=== PATIENT | female | born 1980 | race Caucasian/White ===

== ENCOUNTER → 2017-07-16 | Outpatient (CLI) | payer OTHER ==
--- NOTE | 2017-07-17 08:53 | WWHP ---
CHIEF COMPLAINT: The patient is here for her routine gynecologic exam and mammogram. HPI: This is a 36-year-old G4, P3-0-1-3 with an LMP of 03/02/16. She is status post tubal ligation. She states this month she has noticed a slight fluttering type of sensation in the area of the mons pubis. She states she notices this several times a day. She denies pain and this is not very bothersome, but she states this is different. She states it feels like a cell phone is vibrating in this area. She cannot associate this with any type of activity. She did not notice this before this month. She is otherwise without complaints. Menses are regular every month. PAST MEDICAL HISTORY: Unremarkable. MEDICATIONS: None. ALLERGIES: No known drug allergies. 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 SOCIAL HISTORY: She denies tobacco and drug use and has zero to two alcoholic drinks per year. She has been since 07/17. Her new has four children of his own. 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 REVIEW OF SYSTEMS: She states she lost about 25 pounds a few months ago, but has gained about 12 pounds back. She did this with a prescription of Adipex which she briefly used and is no longer taking this. She denies respiratory, cardiac, or GI problems. PHYSICAL EXAM: Blood pressure 110/73, height 5 feet 4 inches, weight 212 pounds. Temperature 98.7, pulse 80. This is a well developed, heavy set white female who is alert and oriented x3 in no acute distress. HEENT is within normal limits. Neck is supple without mass or thyromegaly. Chest and lungs clear to auscultation. Heart: Regular rate and rhythm. Breasts are without mass or discharge. Axillary exam is negative for adenopathy. Back negative for CVA tenderness. Abdomen is mildly obese, soft, nontender without palpable masses. Pelvic exam: Normal external genitalia. Cervix and vagina appear normal. There is no evidence of prolapse. The uterus is mid-position, nongravid size and nontender. There are no palpable adnexal masses or tenderness. Rectovaginal exam is negative for mass or tenderness. Extremities are nontender. IMPRESSION: 1. A 36-year-old female with normal gynecologic exam who is status post tubal ligation. 2. Occasional fluttering type sensation in the low abdomen without any significant physical findings at this time. 3. Family history of breast cancer in her mother. PLAN: 1. PAP smear was deferred since she had a negative one last year. 2. Self breast examination was discussed. 3. Mammogram will be done today and yearly because of her family history. 4. We had long discussion regarding the recent occasional fluttering sensation. Since there are no significant physical findings and this is not very bothersome to her I decided to follow this conservatively. She will see if this is associated with any type of activity and to see if it persists. She was instructed to call if she is having increasing symptoms or problems. 5. We have discussed her weight. I have recommended that she try to lose weight without medications. We discussed the importance of good nutrition and exercise. I have also asked her to consider attending [employer]. 6. She will return in one year. PRADEEP
--- NOTE | 2017-07-18 09:00 | MM ---
Reason for exam: screening (asymptomatic). Last mammogram was performed 1 year and 11 months ago. History: Family history of breast cancer in mother at age 42. Physical Findings: A clinical breast exam by your physician is recommended on an annual basis and results should be correlated with mammographic findings. MG Screening Mammo w CAD Bilateral CC and MLO view(s) were taken. Prior study comparison: August 19, 2015, right breast MG work up mamm w CAD RT. August 12, 2015, bilateral MG screening mammo w CAD. March 31, 2012, CAD bilateral diagnostic mammogram. March 01, 2011, bilateral digital screening mammo w/CAD. The breast tissue is heterogeneously dense. This may lower the sensitivity of mammography. No significant changes when compared with prior studies. ASSESSMENT: Negative, BI-RAD 1 RECOMMENDATION: Routine screening mammogram of both breasts at age 38.
== END | disposition home or self-care (01) ==
LOC: WWCWWP 10:50
PROVIDERS: ATTEND Obstetrics & Gynecology
DX: Z12.31 Encounter for screening mammogram for malignant neoplasm of breast (principal)

== ENCOUNTER → 2018-10-14 | Outpatient (CLI) | payer OTHER ==
[2018-10-14 10:51] VITALS: BP 117/67; PULSE 78; TEMP 97.4; BMI 35.9
--- NOTE | 2018-10-14 11:32 | P.HPOB ---
History of Present Illness H&P Date: 10/14/18 Chief Complaint: The patient is here for her routine gynecologic exam and mammogram. This is a 38-year-old with an LMP of 09/14/2018. The patient states she has noticed occasional slight vaginal odor, but denies any vaginal odor currently. She was previously treated for BV after her last Pap smear done in 2016. She is otherwise without complaints. Menses are regularly 23 days. She is status post tubal ligation. Review of Systems The patient has lost 3 pounds over the last year. She denies respiratory, cardiac, or G.I. problems. 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 She has no other history of STDs. History of Any Multi-Drug Resistant Organisms: None Reported Additional Past Surgical History / Comment(s): Multiple Surgeries for cleft lip and palate between ages 1 and 12. Past Psychological History: No Psychological Hx Reported Smoking Status: Never smoker Past Alcohol Use History: Rare Additional Past Alcohol Use History / Comment(s): 0-2 per year Past Drug Use History: None Reported Additional History: She has been since 2015. Her has 4 children of his own. 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 - Past Family History Mother Family Medical History: Cancer (Breast cancer at age 41, .) Father Family Medical History: CVA/TIA, Hypertension Additional Family Medical History / Comment(s): She was once told her paternal grandfather had breast cancer. She will try to confirm this. Medications and Allergies Home Medications Medication Instructions Recorded Confirmed Type No Known Home Medications 10/14/18 10/14/18 History Allergies Allergy/AdvReac Type Severity Reaction Status Date / Time No Known Allergies Allergy Unverified 10/14/18 10:45 Exam Vital Signs Temp Pulse BP 10/14/18 10:47 97.4 F L 78 117/67 Intake and Output 10/13/18 10/14/18 10/14/18 22:59 06:59 14:59 Other: Weight 94.801 kg This is a well-developed well-nourished heavyset white female who is alert and oriented times 3 in no acute distress. HEENT: Within normal limits. NECK: Supple without mass or thyromegaly. CHEST AND LUNGS: Clear to auscultation. HEART: Regular rate and rhythm. BREASTS: Are without mass or discharge. AXILLARY EXAM: Negative for adenopathy. BACK: Negative for CVA tenderness. ABDOMEN: Soft, nontender, without palpable masses. PELVIC EXAM: Normal external genitalia. Cervix and vagina appear normal. There is no unusual discharge. There is no odor. There is no evidence of prolapse. The uterus is midposition, nongravid size and nontender. There are no palpable adnexal masses or tenderness. RECTAL EXAM: negative for mass or tenderness and is negative for occult blood. EXTREMITIES: Nontender. IMPRESSION: 1. 38-year-old female with normal gynecologic exam who is status post tubal ligation. 2. Family history of breast cancer in her mother. Also possible history of breast cancer in a paternal grandfather. PLAN: 1. Pap smear was performed. 2. Self breast awareness was discussed with the patient. 3. Screening mammogram will be done today. I have recommended she have this done yearly. We also had a long discussion regarding BRCA testing. She is declining this at this time. She was instructed to let me know if she changes her mind about this. 4. Osteoporosis prevention was discussed. 5. She will return in one year.
--- NOTE | 2018-10-16 09:45 | MM ---
Reason for exam: screening (asymptomatic). Last mammogram was performed 1 year and 3 months ago. History: Family history of breast cancer in mother at age 42. Now . MG 3D Screening Mammo W/Cad Bilateral CC and MLO view(s) were taken. Prior study comparison: July 16, 2017, bilateral MG screening mammo w CAD. August 19, 2015, right breast MG work up mamm w CAD RT. The breast tissue is heterogeneously dense. This may lower the sensitivity of mammography. There is a new focal asymmetry seen on the right CC view medially. Special views of the right breast are recommended. ASSESSMENT: Incomplete: need additional imaging evaluation, BI-RAD 0 RECOMMENDATION: Special view mammogram of the right breast.
== END | disposition home or self-care (01) ==
LOC: WWCWWP 10:39
PROVIDERS: ATTEND Obstetrics & Gynecology
DX: Z12.31 Encounter for screening mammogram for malignant neoplasm of breast (principal)
CPT/HCPCS: 77063; 77067

== ENCOUNTER → 2018-10-22 | Outpatient (CLI) | payer OTHER ==
--- NOTE | 2018-10-22 11:35 | MM ---
Reason for exam: additional evaluation requested from abnormal screening. Last mammogram was performed less than 1 month ago. History: Family history of breast cancer in mother at age 42. Physical Findings: Nurse did not find any significant physical abnormalities on exam. MG 3D Work Up W/Cad RT CC and MLO view(s) were taken of the right breast. Prior study comparison: October 14, 2018, bilateral MG 3d screening mammo w/cad. July 16, 2017, bilateral MG screening mammo w CAD. The breast tissue is heterogeneously dense. This may lower the sensitivity of mammography. 5 o'clock focal asymmetry becomes much less defined on additional view but is noted to be new from older priors. This may be focal fibroglandular tissue now apparent as a consequence of her reported weight loss. These results were verbally communicated with the patient and result sheet given to the patient on 10/22/18. ASSESSMENT: Probably benign, BI-RAD 3 RECOMMENDATION: Follow-up diagnostic mammogram of the right breast in 6 months.
== END | disposition home or self-care (01) ==
LOC: RADMAMWWP 10:16
PROVIDERS: ATTEND Obstetrics & Gynecology
DX: R92.8 Other abnormal and inconclusive findings on diagnostic imaging of breast (principal)
CPT/HCPCS: 77061; 77065

== ENCOUNTER → 2019-10-20 | Outpatient (CLI) | payer OTHER ==
[2019-10-20 12:58] VITALS: BP 109/75; PULSE 75; RESP 18; TEMP 98.1; BMI 38.7
--- NOTE | 2019-10-20 13:27 | P.HPOB ---
History of Present Illness H&P Date: 10/20/19 Chief Complaint: The patient is here for her routine gynecologic exam and ma mmogram. This is a 39-year-old 013 with an LMP of 10/15/2019. The patient is without gynecologic complaints. Menses are regular every month. The patient was advised to have a repeat right breast ultrasound about 6 months ago, but she did not have this done. Review of Systems The patient has gained 17 pounds over the last year. She denies respiratory, cardiac, or G.I. problems. 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 She has no other history of STDs. History of Any Multi-Drug Resistant Organisms: None Reported Additional Past Surgical History / Comment(s): Multiple Surgeries for cleft lip and palate between ages 1 and 12. Past Psychological History: No Psychological Hx Reported Smoking Status: Never smoker Past Alcohol Use History: Rare (4 per year) Past Drug Use History: None Reported Additional History: She has been since 2015. Her has 4 children of his own. 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 - Past Family History Mother Family Medical History: Cancer Additional Family Medical History / Comment(s): Breast cancer at age 41. Father Family Medical History: CVA/TIA, Hypertension Additional Family Medical History / Comment(s): She was once told her paternal grandfather had breast cancer. She will try to confirm this. Medications and Allergies Home Medications Medication Instructions Recorded Confirmed Type Multivitamin [Multivitamins Adult 1 each PO DAILY 10/20/19 10/20/19 History Gummies] Allergies Allergy/AdvReac Type Severity Reaction Status Date / Time No Known Allergies Allergy Unverified 10/20/19 12:59 Exam Vital Signs Temp Pulse Resp BP Pulse Ox 10/20/19 12:53 98.1 F 75 18 109/75 97 Intake and Output 10/19/19 10/20/19 10/20/19 22:59 06:59 14:59 Other: Weight 102.512 kg Height 5 feet 4 inches, weight 226 pounds, BMI 38.8. This is a well-developed well-nourished heavyset white female who is alert and oriented times 3 in no acute distress. HEENT: Within normal limits. NECK: Supple without mass or thyromegaly. CHEST AND LUNGS: Clear to auscultation. HEART: Regular rate and rhythm. BREASTS: Are without mass or discharge. AXILLARY EXAM: Negative for adenopathy. BACK: Negative for CVA tenderness. ABDOMEN: Soft, nontender, without palpable masses. PELVIC EXAM: Normal external genitalia. Cervix and vagina appear normal. There is a small amount of menstrual blood in the vagina consistent with her menstrual period. There is no unusual discharge. There is no evidence of prolapse. The uterus is midposition, nongravid size and nontender. There are no palpable adnexal masses or tenderness. RECTAL EXAM: negative for mass or tenderness and is negative for occult blood. EXTREMITIES: Nontender. IMPRESSION: 1. 39-year-old female with normal gynecologic exam. 2. Previous abnormal right mammogram 1 year ago and she did not do the follow- up 6 month mammogram. PLAN: 1. Pap smear was deferred since she had a normal one on 10/14/2018. 2. Self breast awareness was discussed with the patient. 3. Diagnostic bilateral mammogram will be done today. 4. Osteoporosis prevention was discussed. I have stressed the importance of adequate calcium, vitamin D and regular exercise. Recommended amounts of calcium and vitamin D were also discussed. 5. She was advised to return in one year for her annual well woman exam.
--- NOTE | 2019-10-20 14:29 | MM ---
Reason for exam: additional evaluation requested from prior study. Last mammogram was performed 1 year ago. History: Family history of breast cancer in mother at age 42. Physical Findings: Dr. Arellano did breast exam. MG 3D Diag Mammo W/Cad SISSY Bilateral CC and MLO view(s) were taken. Prior study comparison: October 22, 2018, right breast MG 3d work up w/cad RT. October 14, 2018, bilateral MG 3d screening mammo w/cad. The breast tissue is heterogeneously dense. This may lower the sensitivity of mammography. No suspicious abnormality. No significant new findings when compared with previous films. These results were verbally communicated with the patient and result sheet given to the patient on 10/20/19. ASSESSMENT: Negative, BI-RAD 1 RECOMMENDATION: Routine screening mammogram of both breasts in 1 year.
== END ==
LOC: WWCWWP 12:39
PROVIDERS: ATTEND Obstetrics & Gynecology
DX: R92.8 Other abnormal and inconclusive findings on diagnostic imaging of breast (principal)
CPT/HCPCS: 77062; 77066

== ENCOUNTER → 2021-02-14 | Outpatient (CLI) | payer OTHER ==
[2021-02-14 09:28] VITALS: BP 120/76; PULSE 76; RESP 18; TEMP 98.3
--- NOTE | 2021-02-14 09:55 | P.HPOB ---
History of Present Illness H&P Date: 02/14/21 Chief Complaint: The patient is here for her routine gynecologic exam and ma mmogram. This is a 40-year-old 013 with an LMP of 01/30/2021. She is status post tubal ligation. The patient is without gynecologic complaints. Menses are regular every month. Review of Systems The patient has gained 8 pounds over the last year. She denies respiratory, cardiac, or G.I. problems. 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 She has no other history of STDs. History of Any Multi-Drug Resistant Organisms: None Reported Additional Past Surgical History / Comment(s): Multiple Surgeries for cleft lip and palate between ages 1 and 12. Past Psychological History: No Psychological Hx Reported Smoking Status: Never smoker Past Alcohol Use History: Rare Additional Past Alcohol Use History / Comment(s): 0-2 per year Past Drug Use History: None Reported Additional History: She has been since 2015. 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 - Past Family History Mother Family Medical History: Cancer Additional Family Medical History / Comment(s): Breast cancer at age 41. Father Family Medical History: CVA/TIA, Hypertension Additional Family Medical History / Comment(s): She was once told her paternal grandfather had breast cancer. She will try to confirm this. Son(s) Family Medical History: Diabetes Mellitus Additional Family Medical History / Comment(s): Type 1 diabetes Medications and Allergies Home Medications Medication Instructions Recorded Confirmed Type No Known Home Medications 02/14/21 02/14/21 History Allergies Allergy/AdvReac Type Severity Reaction Status Date / Time No Known Allergies Allergy Unverified 02/14/21 09:22 Exam Vital Signs Temp Pulse Resp BP Pulse Ox 02/14/21 09:22 98.3 F 76 18 120/76 96 Intake and Output 02/13/21 02/14/21 02/14/21 22:59 06:59 14:59 Other: Weight 106.141 kg Height 5 feet 4-1/2 inches, weight 234 pounds, BMI 39.5. This is a well-developed well-nourished heavyset white female who is alert and oriented times 3 in no acute distress. HEENT: Within normal limits. NECK: Supple without mass or thyromegaly. CHEST AND LUNGS: Clear to auscultation. HEART: Regular rate and rhythm. BREASTS: Are without mass or discharge. AXILLARY EXAM: Negative for adenopathy. BACK: Negative for CVA tenderness. ABDOMEN: Soft, nontender, without palpable masses. PELVIC EXAM: Normal external genitalia. Cervix and vagina appear normal. There is no unusual discharge. There is no evidence of prolapse. The uterus is midposition, nongravid size and nontender. There are no palpable adnexal masses or tenderness. RECTAL EXAM: negative for mass or tenderness and is negative for occult blood. EXTREMITIES: Nontender. IMPRESSION: 1. 40-year-old female with normal gynecologic exam. 2. Family history of breast cancer in her mother. PLAN: 1. Pap smear cotest was performed. 2. Self breast awareness was discussed with the patient. 3. Screening mammogram will be done today. 4. Osteoporosis prevention was discussed. I have stressed the importance of adequate calcium, vitamin D and regular exercise. Recommended amounts of calcium and vitamin D were also discussed. 5. Weight control was discussed with the patient. I have stressed the importance of regular meals, good nutrition, adequate fiber, and adequate exercise. 6. She was advised to return in one year for her annual well woman exam.
--- NOTE | 2021-02-16 08:30 | MM ---
Reason for exam: screening (asymptomatic). Last mammogram was performed 1 year and 4 months ago. History: Family history of breast cancer in mother at age 42. Took hormonal contraceptives for 1 month. Physical Findings: A clinical breast exam by your physician is recommended on an annual basis and results should be correlated with mammographic findings. MG 3D Screening Mammo W/Cad Bilateral CC and MLO view(s) were taken. Prior study comparison: October 20, 2019, bilateral MG 3d diag mammo w/cad SISSY. October 22, 2018, right breast MG 3d work up w/cad RT. There are scattered fibroglandular densities. No significant changes when compared with prior studies. ASSESSMENT: Benign, BI-RAD 2 RECOMMENDATION: Routine screening mammogram of both breasts in 1 year.
== END | disposition home or self-care (01) ==
LOC: WWCWWP 09:14
PROVIDERS: ATTEND Obstetrics & Gynecology
DX: Z12.31 Encounter for screening mammogram for malignant neoplasm of breast (principal)
CPT/HCPCS: 77063; 77067

== ENCOUNTER → 2021-06-27 | Outpatient (CLI) | payer OTHER ==
[2021-06-27 13:02] VITALS: BP 105/66; PULSE 74; RESP 18; TEMP 98.3
--- NOTE | 2021-06-27 13:33 | P.PN ---
Progress Note - Text Progress Note Date: 06/27/21 Chief Complaint: Left breast boil noticed since 06/10/2021 HPI: This is a 40-year-old 013 with an LMP of 06/08/2021. The patient noticed a boil type lesion on the lower part of the left breast around 2 days after her LMP. She states it seemed to feel large and swollen with a olguin. She did have some blood drained from it as well as a small amount of whitish material. Since then it has gotten quite a bit smaller and is not painful. ROS: She denies fever or nipple discharge. PE: Blood pressure:105/66 Height: 5 feet 4-1/2 inches, Weight: 232 pounds, Temperature: 98.3, Pulse: 74. Pulse oximeter 97%. This is a well developed, well nourished, white female who is alert and cherie entedx3, in no acute distress. Left breast: There is a visible darkened area measuring 1.5 x 2.0 cm at the 5 o'clock position. This is slightly firm and nontender. There is no erythema. There is no drainage. This is consistent with a resolving boil/furuncle. There are no other abnormalities of the left breast with no masses within the breast. The nipple appears normal with no discharge. There is no unusual puckering or dimpling. 02/14/2021 mammogram was benign. Impression: 1. 40-year-old perimenopausal female with a recent left breast furuncle (boil) which is now resolving. 2. Family history of breast cancer in her mother. Plan: 1. I have given the patient reassurance that I do not believe this is any form of breast cancer. This is resolving and should continue to resolve. 2. The patient was instructed to use warm compresses to the area on a regular basis. This will help anything to drain if he is developing within the furuncle. The patient will also use a small amount of Neosporin as directed until it has resolved. 3. She was instructed to call if this is worsening or enlarging, or if signs of infection such as redness. 4. She will return in January 2022 for her annual examination and mammogram. Time spent with the patient: 15 minutes
== END ==
LOC: WWCWWP 12:33
PROVIDERS: ATTEND Obstetrics & Gynecology
DX: N61.1 Abscess of the breast and nipple (principal); Z80.3 Family history of malignant neoplasm of breast

== ENCOUNTER → 2022-02-06 | Outpatient (CLI) | payer OTHER ==
[2022-02-06 10:42] VITALS: BP 137/82; PULSE 71; RESP 17; TEMP 98
--- NOTE | 2022-02-06 11:42 | P.HPOB ---
History of Present Illness H&P Date: 02/06/22 Chief Complaint: The patient is here for her routine gynecologic exam and ma mmogram. This is a 41-year-old 013 with an LMP of 02/01/2022. The patient is status post tubal ligation. She is without gynecologic complaints. She states menstrual periods are regular every month. Review of Systems The patient has gained 2 pounds over the last year. She denies respiratory, cardiac, or G.I. problems. 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 She has no other history of STDs. History of Any Multi-Drug Resistant Organisms: None Reported Additional Past Surgical History / Comment(s): Multiple Surgeries for cleft lip and palate between ages 1 and 12. Past Psychological History: No Psychological Hx Reported Smoking Status: Never smoker Past Alcohol Use History: Rare (0-2 per year) Additional Past Alcohol Use History / Comment(s): 0-2 per year Past Drug Use History: None Reported Additional History: She has been since 2015. 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 - Past Family History Mother Family Medical History: Cancer Additional Family Medical History / Comment(s): Breast cancer at age 41. Father Family Medical History: CVA/TIA, Hypertension Additional Family Medical History / Comment(s): She was once told her paternal grandfather had breast cancer. She will try to confirm this. Son(s) Family Medical History: Diabetes Mellitus Additional Family Medical History / Comment(s): Type 1 diabetes Medications and Allergies Home Medications Medication Instructions Recorded Confirmed Type No Known Home Medications 02/14/21 02/06/22 History Allergies Allergy/AdvReac Type Severity Reaction Status Date / Time No Known Allergies Allergy Unverified 02/06/22 10:39 Exam Vital Signs Temp Pulse Resp BP Pulse Ox 02/06/22 10:39 98 F 71 17 137/82 97 Intake and Output 02/05/22 02/06/22 02/06/22 22:59 06:59 14:59 Other: Weight 107.048 kg Height 5 feet 4 inches, weight 236 pounds, BMI 40.5. This is a well-developed well-nourished white female who is alert and oriented times 3 in no acute distress. HEENT: Within normal limits. NECK: Supple without mass or thyromegaly. CHEST AND LUNGS: Clear to auscultation. HEART: Regular rate and rhythm. BREASTS: Are without mass or discharge. AXILLARY EXAM: Negative for adenopathy. BACK: Negative for CVA tenderness. ABDOMEN: Soft, nontender, without palpable masses. There is a skin boil over the left upper quadrant measuring approximately 2.5 cm. This appears benign. PELVIC EXAM: Normal external genitalia. Cervix and vagina appear normal. There is no unusual discharge. There is no evidence of prolapse. The uterus is midposition, nongravid size and nontender. There are no palpable adnexal masses or tenderness. RECTAL EXAM: negative for mass or tenderness and is negative for occult blood. EXTREMITIES: Nontender. IMPRESSION: 1. 41-year-old female who is status post tubal ligation, with normal gynecologic exam. 2. Family history of breast cancer in her mother. PLAN: 1. Pap smear was deferred since she had a negative Pap smear, test on 02/14/2021. 2. Self breast awareness was discussed with the patient. We have also discussed symptoms associated with inflammatory breast cancer. 3. Screening mammogram will be done today. 4. Osteoporosis prevention was discussed. I have stressed the importance of adequate calcium, vitamin D and regular exercise. Recommended amounts of calcium and vitamin D were also discussed. 5. The patient states she has had fairly frequent boils on her skin in various areas including behind her year, on her abdomen, on her breasts, and in the groin areas. They typically go away with time. I have recommended that she discuss this with a electric meter technician if they are becoming a problem. We have also discussed the use of warm compresses and Neosporin when the development. I have recommended that she avoid popping them or trying to open them. 6. She was advised to return in one year for her annual well woman exam.
--- NOTE | 2022-02-07 10:55 | MM ---
Reason for exam: screening (asymptomatic). Last mammogram was performed 1 year ago. History: Family history of breast cancer in mother at age 42. Took hormonal contraceptives for 1 month. Physical Findings: A clinical breast exam by your physician is recommended on an annual basis and results should be correlated with mammographic findings. MG 3D Screening Mammo W/Cad Bilateral CC and MLO view(s) were taken. Prior study comparison: February 14, 2021, bilateral MG 3d screening mammo w/cad. October 20, 2019, bilateral MG 3d diag mammo w/cad [facility]. The breast tissue is heterogeneously dense. This may lower the sensitivity of mammography. There is no discrete abnormality. No significant changes when compared with prior studies. ASSESSMENT: Negative, BI-RAD 1 RECOMMENDATION: Routine screening mammogram of both breasts in 1 year.
== END ==
LOC: WWCWWP 10:23
PROVIDERS: ATTEND Obstetrics & Gynecology
DX: Z12.31 Encounter for screening mammogram for malignant neoplasm of breast (principal); Z01.419 Encounter for gynecological examination (general) (routine) without abnormal findings; Z98.51 Tubal ligation status; Z80.3 Family history of malignant neoplasm of breast
CPT/HCPCS: 77063; 77067

== ENCOUNTER → 2023-02-13 | Outpatient (CLI) | payer OTHER ==
[2023-02-13 08:15] VITALS: BP 114/78; PULSE 72; RESP 17; TEMP 98.2
--- NOTE | 2023-02-13 08:50 | P.HPOB ---
History of Present Illness H&P Date: 02/13/23 Chief Complaint: The patient is here for her routine gynecologic exam and ma mmogram. This is a 42-year-old 013 with an LMP of 01/21/2023. The patient is status post tubal ligation. She is without gynecologic complaints. Menstrual periods are regular about every 3 1/2 weeks and typically last 5 days. Review of Systems The patient has lost 3 pounds over the last year. She denies respiratory, cardiac, or G.I. problems. 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 She has no other history of STDs. History of Any Multi-Drug Resistant Organisms: None Reported Additional Past Surgical History / Comment(s): Multiple Surgeries for cleft lip and palate between ages 1 and 12. Past Psychological History: No Psychological Hx Reported Smoking Status: Never smoker Past Alcohol Use History: Rare (0-2 per year) Additional Past Alcohol Use History / Comment(s): 0-2 per year Past Drug Use History: None Reported Additional History: She has been since 2015. 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 - Past Family History Mother Family Medical History: Cancer Additional Family Medical History / Comment(s): Breast cancer at age 41. Father Family Medical History: CVA/TIA, Hypertension Additional Family Medical History / Comment(s): She was once told her paternal grandfather had breast cancer. She will try to confirm this. Son(s) Family Medical History: Diabetes Mellitus Additional Family Medical History / Comment(s): Type 1 diabetes Medications and Allergies Home Medications Medication Instructions Recorded Confirmed Type No Known Home Medications 02/14/21 02/13/23 History Allergies Allergy/AdvReac Type Severity Reaction Status Date / Time No Known Allergies Allergy Unverified 02/13/23 08:09 Exam Vital Signs Temp Pulse Resp BP Pulse Ox 02/13/23 08:09 98.2 F 72 17 114/78 100 Intake and Output 02/12/23 02/13/23 02/13/23 22:59 06:59 14:59 Other: Weight 105.687 kg Height 5 feet 5 inches, weight 233 pounds, BMI 38.8. This is a well-developed well-nourished white female who is alert and oriented times 3 in no acute distress. HEENT: Within normal limits. NECK: Supple without mass or thyromegaly. CHEST AND LUNGS: Clear to auscultation. HEART: Regular rate and rhythm. BREASTS: Are without mass or discharge. AXILLARY EXAM: Negative for adenopathy. BACK: Negative for CVA tenderness. ABDOMEN: Soft, nontender, without palpable masses. PELVIC EXAM: Normal external genitalia. Cervix and vagina appear normal. There is no unusual discharge. There is no evidence of prolapse. The uterus is midposition, nongravid size and nontender. There are no palpable adnexal masses or tenderness. RECTAL EXAM: negative for mass or tenderness and is negative for occult blood. EXTREMITIES: Nontender. IMPRESSION: 1. 42-year-old female with normal gynecologic exam who is status post tubal ligation. 2. Family history of breast cancer in her mother. No other family history of breast cancer. PLAN: 1. Pap smear was deferred since she had a negative Pap smear cotest on 02/14/2021. 2. Self breast awareness was discussed with the patient. We have also discussed symptoms associated with inflammatory breast cancer. 3. Screening mammogram will be done today. 4. Osteoporosis prevention was discussed. I have stressed the importance of adequate calcium, vitamin D and regular exercise. Recommended amounts of calcium and vitamin D were also discussed. 5. She will keep a menstrual calendar and call if menstrual problems. 6. She was advised to return in one year for her annual well woman exam.
--- NOTE | 2023-02-13 10:33 | MM ---
Reason for Exam: Screening (asymptomatic). Last screening mammogram was performed 12 month(s) ago. Patient History: Menarche at age 9. First Full-Term at age 18. Hormonal Contraceptives for 1 month. Mother had breast cancer, age 42. Last menstrual period: 01/21/2023 Risk Values: Radhika 5 year model risk: 1.6%. NCI Lifetime model risk: 19.3%. Prior Study Comparison: 10/20/2019 Bilateral Diagnostic Mammogram, [facility]. 02/14/2021 Bilateral Screening Mammogram, [facility]. 02/06/2022 Bilateral Screening Mammogram, [facility]. Tissue Density: The breast tissue is heterogeneously dense. This may lower the sensitivity of mammography. Analyzed By CAD. Overall Assessment: Negative, BI-RAD 1 Management: Screening Mammogram of both breasts in 1 year. Electronically signed and approved by: Pedro Meza M.D.
== END ==
LOC: WWCWWP 08:01
PROVIDERS: ATTEND Obstetrics & Gynecology
DX: Z12.31 Encounter for screening mammogram for malignant neoplasm of breast (principal); Z80.3 Family history of malignant neoplasm of breast; Z01.419 Encounter for gynecological examination (general) (routine) without abnormal findings; N60.19 Diffuse cystic mastopathy of unspecified breast; Z98.51 Tubal ligation status
CPT/HCPCS: 77063; 77067

== ENCOUNTER → 2024-03-24 | Outpatient (CLI) | payer OTHER ==
--- NOTE | 2024-03-24 13:19 | P.HPOB ---
History of Present Illness H&P Date: 03/24/24 Chief Complaint: The patient is here for her routine gynecologic exam and ma mmogram. This is a 43-year-old -0-1-3 with an LMP of 03/02/2024. The patient states she had an episode of bilateral breast soreness after she started a workout regimen that included pectoral exercises. She stopped the workout when she went on vacation and the soreness resolved. She denies ever feeling a breast mass during the soreness. She is otherwise without gynecologic complaints and states her menstrual periods are regular about every 3 and half weeks. Review of Systems The patient's weight has been stable over the last year. She denies respiratory, cardiac, or G.I. problems. 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 She has no other history of STDs. History of Any Multi-Drug Resistant Organisms: None Reported Additional Past Surgical History / Comment(s): Multiple Surgeries for cleft lip and palate between ages 1 and 12. Past Psychological History: No Psychological Hx Reported Smoking Status: Never smoker Past Alcohol Use History: Rare (0-2 drinks per year.) Additional Past Alcohol Use History / Comment(s): 0-2 per year Past Drug Use History: None Reported Additional History: She has been since 2015. 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 - Past Family History Mother Family Medical History: Cancer Additional Family Medical History / Comment(s): Breast cancer at age 41. Father Family Medical History: CVA/TIA, Hypertension Additional Family Medical History / Comment(s): She was once told her paternal grandfather had breast cancer. She will try to confirm this. Son(s) Family Medical History: Diabetes Mellitus Additional Family Medical History / Comment(s): Type 1 diabetes Medications and Allergies Home Medications Medication Instructions Recorded Confirmed Type No Known Home Medications 02/14/21 02/13/23 History Allergies Allergy/AdvReac Type Severity Reaction Status Date / Time No Known Allergies Allergy Unverified 03/24/24 12:56 Exam Vital Signs Temp Pulse Resp BP Pulse Ox 03/24/24 12:56 98.4 F 80 17 132/74 96 Intake and Output 03/23/24 03/24/24 03/24/24 22:59 06:59 14:59 Other: Weight 106.594 kg Height 5 feet 4 inches, weight 235 pounds, BMI 40.3. This is a well-developed well-nourished white female who is alert and oriented times 3 in no acute distress. HEENT: Within normal limits. NECK: Supple without mass or thyromegaly. CHEST AND LUNGS: Clear to auscultation. HEART: Regular rate and rhythm. BREASTS: Are without mass or discharge. Breasts are nontender. AXILLARY EXAM: Negative for adenopathy. BACK: Negative for CVA tenderness. ABDOMEN: Soft, nontender, without palpable masses. PELVIC EXAM: Normal external genitalia. Cervix and vagina appear normal. There is no unusual discharge. There is no evidence of prolapse. The uterus is midposition, nongravid size and nontender. There are no palpable adnexal masses or tenderness. RECTAL EXAM: negative for mass or tenderness and is negative for occult blood. EXTREMITIES: Nontender. IMPRESSION: 1. 43-year-old female who is status post tubal ligation, with normal gynecologic exam 2. Family of breast cancer in her mother. PLAN: 1. Pap smear was deferred since she had a negative Pap smear cotest on 02/14/2021. 2. Self breast awareness was discussed with the patient. We have also discussed symptoms associated with inflammatory breast cancer. 3. Screening mammogram will be done today 4. Osteoporosis prevention was discussed. I have stressed the importance of adequate calcium, vitamin D and regular exercise. Recommended amounts of calcium and vitamin D were also discussed. 5. The patient will keep a menstrual calendar and call if menstrual problems. 6. Colorectal cancer screening was discussed with the patient. She will discuss options with her PCP. 7. She was advised to return in one year for her annual well woman exam.
[2024-03-24 13:30] VITALS: BP 132/74; PULSE 80; RESP 17; TEMP 98.4
== END ==
LOC: WWCWWP 12:27
PROVIDERS: ATTEND Obstetrics & Gynecology
DX: Z12.31 Encounter for screening mammogram for malignant neoplasm of breast (principal); Z80.3 Family history of malignant neoplasm of breast
CPT/HCPCS: 77063; 77067

== ENCOUNTER → 2025-03-30 | Outpatient (CLI) | payer OTHER ==
[2025-03-30 16:22] VITALS: BP 119/80; PULSE 81; RESP 16; TEMP 98.1
--- NOTE | 2025-03-30 16:56 | P.HPOB ---
History of Present Illness H&P Date: 03/30/25 Chief Complaint: The patient is here for her routine gynecologic exam and ma mmogram. This is a 44-year-old -0-1-3 with an LMP of 03/23/2025 she is status post tubal ligation. She states her menstrual periods are regular every month. She is without gynecologic complaints. Review of Systems The patient has gained 10 pounds over the last year. She denies respiratory, cardiac, or G.I. problems. 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 She has no other history of STDs. History of Any Multi-Drug Resistant Organisms: None Reported Additional Past Surgical History / Comment(s): Multiple Surgeries for cleft lip and palate between ages 1 and 12. Past Psychological History: No Psychological Hx Reported Smoking Status: Never smoker Past Alcohol Use History: Rare ( 5 drinks per year.) Past Drug Use History: None Reported Additional History: She has been since 2015. 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 - Past Family History Mother Family Medical History: Cancer Additional Family Medical History / Comment(s): Breast cancer at age 41. Father Family Medical History: CVA/TIA, Hypertension Additional Family Medical History / Comment(s): She was once told her paternal grandfather had breast cancer. She will try to confirm this. Son(s) Family Medical History: Diabetes Mellitus Additional Family Medical History / Comment(s): Type 1 diabetes Medications and Allergies Home Medications Medication Instructions Recorded Confirmed Type No Known Home Medications 02/14/21 03/30/25 History Allergies Allergy/AdvReac Type Severity Reaction Status Date / Time No Known Allergies Allergy Unverified 03/30/25 16:11 Exam Vital Signs Temp Pulse Resp BP Pulse Ox 03/30/25 16:13 98.1 F 81 16 119/80 96 Intake and Output 03/30/25 03/30/25 03/30/25 06:59 14:59 22:59 Other: Weight 111.13 kg Height 5 feet 4 inches, weight 245 pounds, BMI 42.1. This is a well-developed well-nourished heavyset white female who is alert and oriented times 3 in no acute distress. HEENT: Within normal limits. NECK: Supple without mass or thyromegaly. CHEST AND LUNGS: Clear to auscultation. HEART: Regular rate and rhythm. BREASTS: Are without mass or discharge. There are 2 benign-appearing raised skin lesions in the midline of the chest over the sternum. She states they do get irritated sometimes. Each of them measures approximately 6 mm AXILLARY EXAM: Negative for adenopathy. BACK: Negative for CVA tenderness. ABDOMEN: Soft, nontender, without palpable masses. PELVIC EXAM: Normal external genitalia. Cervix and vagina appear normal. There is no unusual discharge. There is no evidence of prolapse. The uterus is midposition, nongravid size and nontender. There are no palpable adnexal masses or tenderness. RECTAL EXAM: negative for mass or tenderness and is negative for occult blood. EXTREMITIES: Nontender. IMPRESSION: 1. 44-year-old premenopausal female status post tubal ligation with normal gynecologic exam. 2. Benign-appearing skin molelike lesions overlying the sternum in the midline of her chest. These are not breast lesions. PLAN: 1. Pap smear cotest was performed 2. Self breast awareness was discussed with the patient. We have also discussed symptoms associated with inflammatory breast cancer. Regarding the benign-appearing skin lesions, she can use hydrocortisone cream if it feels irritated. She can follow-up with her PCP or supervisor order takers if they are bothersome. 3. Screening mammogram will be done today. 4. Osteoporosis prevention was discussed. I have stressed the importance of adequate calcium, vitamin D and regular exercise. Recommended amounts of calcium and vitamin D were also discussed. 5. She was advised to return in one year for her annual well woman exam.
--- NOTE | 2025-03-31 07:43 | MM ---
Reason for Exam: Screening (asymptomatic). Last screening mammogram was performed 12 month(s) ago. Patient History: Menarche at age 9. First Full-Term at age 18. Premenopausal. Hormonal Contraceptives for 1 month. Mother had breast cancer, age 42. Risk Values: Radhika 5 year model risk: 1.8%. NCI Lifetime model risk: 18.9%. Prior Study Comparison: 02/14/2021 Bilateral Screening Mammogram, [facility]. 02/06/2022 Bilateral Screening Mammogram, [facility]. 02/13/2023 Bilateral MG 3D screening mammo w/cad, [facility]. 03/24/2024 Bilateral MG 3D screening mammo w/cad, [facility]. Tissue Density: The breasts are heterogeneously dense, which may obscure small masses. Findings: There is no suspicious new group of microcalcifications or new suspicious mass in either breast. Overall Assessment: Negative, BI-RAD 1 Management: Screening Mammogram of both breasts in 1 year. . Patient should continue monthly self-breast exams. A clinical breast exam by your physician is recommended on an annual basis. This exam should not preclude additional follow-up of suspicious palpable abnormalities. Note on Radhika scores and lifetime risk: 1. A Radhika score greater than 3% is considered moderate risk. If this is the case, consider specialist referral to assess eligibility for a risk reducing agent. 2. If overall lifetime risk for the development of breast cancer is 20% or higher, the patient may qualify for future screening with alternating mammogram and breast MRI. [facility], , 03/31/2025 7:41 AM. Electronically signed and approved by: Pedro Meza M.D.
== END ==
LOC: WWCWWP 15:58
PROVIDERS: ATTEND Obstetrics & Gynecology
DX: Z12.31 Encounter for screening mammogram for malignant neoplasm of breast (principal); Z01.419 Encounter for gynecological examination (general) (routine) without abnormal findings; Z98.51 Tubal ligation status; Z78.0 Asymptomatic menopausal state
CPT/HCPCS: 77063; 77067